=== PATIENT | male | born 1945 | race Caucasian/White ===

== ENCOUNTER 2023-02-09 11:10 | Outpatient (CLI) | payer OTHER, SELFPAY ==
[2023-02-09 11:30] VITALS: PULSE 73; RESP 18; O2SAT 99
--- NOTE | 2023-02-09 11:49 | XRR_ITS ---
PROCEDURE INFORMATION: Exam: XR Chest Exam date and time: 02/09/2023 11:55 AM Age: 77 years old Clinical indication: Condition or disease; Lung condition and disease; Copd; Complications not specified TECHNIQUE: Imaging protocol: Radiologic exam of the chest. Views: 2 views. COMPARISON: No relevant prior studies available. FINDINGS: Lungs: The lungs are hyperinflated but free of acute disease. Pleural spaces: Unremarkable. No pleural effusion. No pneumothorax. Heart/Mediastinum: Unremarkable. No cardiomegaly. Bones/joints: Unremarkable. XR/XR chest 2V* [id number] IMPRESSION: No acute findings. Hyperinflation.
== END 2023-02-09 11:11 | disposition home or self-care (01) ==
LOC: RT 11:12
PROVIDERS: PCP Nurse Practitioner Family; Visit Provider Chiropractor
DX: J44.9 Chronic obstructive pulmonary disease, unspecified (principal)
CPT/HCPCS: 71046; 94060; J7613